=== PATIENT | male | born 1970 | race Caucasian/White ===

== ENCOUNTER 2022-01-10 07:38 | Outpatient (CLI) | payer MEDICARE, MEDICAID, SELFPAY ==
--- NOTE | 2022-01-10 07:45 | RAD_ITS ---
STUDY: X-RAY - ESOPHAGUS (BARIUM SWALLOW) WITH FLUOROSCOPY REASON FOR EXAM: Male, 51 years old. DYSPHAGIA TECHNIQUE: 13 view(s) of the esophagus were obtained following swallowing of barium. FLUOROSCOPY TIME (if supplied): (30 seconds) minutes/seconds COMPARISON: None. FINDINGS: There is no demonstrated esophageal foreign body. There is no demonstrated stricture or mucosal abnormality. Normal gastroesophageal junction, without a demonstrated hiatal hernia. The patient ingested a 12 mm tablet of barium. The tablet is trapped at the gastroesophageal junction. Normal visualized aortic arch and descending thoracic aorta. Normal visualized pulmonary parenchyma. Normal visualized osseous structures of the thorax. RAD/Esophagus Dual Contrast IMPRESSION: Normal plain film x-ray examination (barium swallow) of the esophagus. The 12 mm tablet of barium is trapped at the gastroesophageal junction. Electronically Signed: Mele Winkler MD at 13:15 EST ,
== END 2022-01-10 23:59 | disposition home or self-care (01) ==
PROVIDERS: Referring Provider Otolaryngology; Visit Provider Otolaryngology
DX: R13.10 Dysphagia, unspecified (principal)
CPT/HCPCS: 74221

== ENCOUNTER → 2022-03-16 | Day surgery (SDC) | payer MEDICARE, MEDICAID, SELFPAY ==
[2022-03-16 11:18] VITALS: BP 136/93; PULSE 90; RESP 18; TEMP 36.5; O2SAT 98
== END | disposition home or self-care (01) ==
LOC: EN 10:56
PROVIDERS: Visit Provider Internal Medicine Gastroenterology
PROC: F00ZJWZ Instrumental Swallowing and Oral Function Assessment using Swallowing Equipment (ICD-10-PCS; CPT 43235; principal; 2022-03-16 11:10)
DX: Z00.00 Encounter for general adult medical examination without abnormal findings (principal)

== ENCOUNTER 2022-06-01 07:57 | Day surgery (SDC) | payer MEDICARE, MEDICAID, SELFPAY ==
[2022-06-01] VITALS (7 sets, daily range): BP systolic 109–122; BP diastolic 81–92; PULSE 77–98; RESP 16–24; TEMP 36.2–36.6; O2SAT 94–98; BMI 32.8
--- NOTE | 2022-06-01 | COLBX_PTH ---
PATIENT: UDAY VILLEGAS LOC: EN U#:[id number] AGE/SX: 51/M ROOM: RE06/01/[address]: Dr. Levon Leonard DO : 1970 BED: DIS: 06/01/2022 SPEC #: [id number] RECD: 06/01/22 10:44 STATUS: CAYLA DINO #: [id number] IAR: 06/01/22 00:[address]: Levon Leonard DEPT: SURGICAL PATHOLOGY RECD BY: Homero Figueroa ENTERED: 06/01/22 10:44 SP TYPE: COLON BX OTHR DR: Dr. Kimber Agustin DO Tissues: A - Duodenum, NOS B - Esophageal mucous membrane Procedures: Surgery Specimen Level IV HEADER OPERATION: Colonoscopy, [place] [place] DIAGNOSIS: Food sticks on swallowing, GERD TISSUE SUBMITTED: A ? Duodenum biopsy, B ? Distal esophagus biopsy MICROSCOPIC DIAGNOSIS A. Duodenum, biopsy: No pathologic change. B. Distal esophagus, biopsy: Gastroesophageal junctional mucosa with chronic inflammation. Focal changes of reflux. No evidence of goblet cell metaplasia. See comment. AM:aguilar 06/02/2022 COMMENT B. Alcian blue/PAS stain with matched control supports the above diagnosis. MICROSCOPIC DESCRIPTION Slides are reviewed. GROSS DESCRIPTION A - Received in fixative is one container labeled with the patient's name and designated duodenum biopsy. The specimen consists of two irregular fragments of light carey soft tissue that in aggregate measure 0.5 x 0.3 x 0.1 cm. The specimen is totally submitted in one cassette. B - Received in fixative is one container labeled with the patient's name and designated distal esophagus biopsy. The specimen consists of two irregular fragments of light carey soft tissue that in aggregate measure 0.6 x 0.5 x 0.1 cm. The specimen is totally submitted in one cassette. / AM:aguilar 06/01/2022 TC:3 CPT: 98881 x2, 85851
[2022-06-01] MEDS: Lactated Ringers 1,000 ML 15 ML IV (08:29)
--- NOTE | 2022-06-01 08:33 | HP.PCM_ITS ---
History and Physical Date of Admission: 06/01/22 UDAY VILLEGAS, is a 51 M who presents to the office today referred by ENT for food sticking in throat after swallowing. Started 5+ yrs ago, getting worse.? He describes it as the feeling that food goes up rather than down after he swallows. Doesn't occur every day. Smaller foods such as rice, corn, hamburger pieces are problematic. Larger pieces of food go down better. Whe he has the sensation he can snort and clear it. No CP or feeling of obstruction in the esophagus. He does have heartburn; pantoprazole 40 mg QAM helps. His compounder Dr Jenna Leon started him on PPI about 3 yrs ago. Every morning he has to blow nose and cough up mucus for half hour. Some mornings, about once a month, he also vomits bile or clear fluid. No hematemesis. He had thorough ENT evaluation. Barium swallow showed normal esophagus but barium pill got stuck at GE junction. No prior EGD or colonoscopy. Had daily BM, occas will have a watery diarrhea but no pattern he can discern. No melena or hematochezia. His symptoms are complicated by chronic lung condition, most like pulmonary fibrosis but not specifically named yet. ROS Const Constitutional: No fatigue ENT ENT: Positive for difficulty swallowing Resp Respiratory: Positive for shortness of breath Cardio Cardiology: Positive for chest pain at rest, shortness of breath and dyspnea on exertion Gastro GI: Positive for heartburn, difficulty swallowing and pain with swallowing; No abdominal pain, belching, bloating, change in bowel habits, change in stool character, coffee ground emesis, constipation, cramping, diarrhea, feeling full early, excessive flatus, incontinent of stools, Vomiting blood/hematemesis, Blood in stool, loose stools, Black,tarry stools, nausea/dyspepsia, vomiting or other Musc Musculoskeletal: Positive for joint pain, back pain, stiffness, Arthritis and leg pain at night Skin Skin: No yellowing of the eye or itchy eyes Psych Psychiatric: No anxiety and No depression Endo Endocrine: No fatigue Aller/Imm Allergy/Immunologic: No itchy eyes Owen/Lymp Hematologic/Lymphatic: No easy bleeding or easy bruising Exam Const General: cooperative, no acute distress, well developed and well groomed Eyes Conjunctivae: conjunctivae normal Sclera: sclerae normal Resp Effort & Inspection: able to speak in complete sentences and labored (slightly) GI Inspection: obesity, scar (midline and from laparoscopy) and visible herniation (supraumbilical ) Palpation: soft, no hepatosplenomegaly and tender Extrem General: no edema Quality Reporting Tobacco Screening ([facility] 138) Smoking Status: Never smoker Assessment and Plan Assessment and Plan (1) Food sticks on swallowing: ?Status:?Acute ? ? ? Orders:?Referrals: ? Speech Therapy ?Plan - Mariah Mckay LIVESTOCK DEALER, LIVESTOCK DEALER-C: 51 yr old male with sensation of food traveling up rather than down when he swallows. Barium swallow shows pill stuck at GE junction. I'm referring him to speech therapy so they can evaluate his swallowing and perhaps shed some light on his complaint. We will get esophageal manometry. He is scheduled for EGD and screening colonoscopy. (2) Heartburn: ?Status:?Acute ?Plan - Mariah Mckay LIVESTOCK DEALER, LIVESTOCK DEALER-C: Continue pantoprazole. We will evaluate for Jefferson's on EGD. I have re-examined the patient. There are no clinical changes since date of exam.
--- NOTE | 2022-06-01 09:46 | OP.CCLET_ITS ---
08/16/2022 Leland Gao Md Re : Upper GI endoscopy procedure for Jennifer Mascorro Dear Dr. Gao This procedure was performed on May. My impressions and recommendations are as follows: Impressions : - Z-line irregular, 40 cm from the incisors. Biopsied. - Moderate Schatzki ring. Dilated. - Enlarged gastric folds. - Gastric antral vascular ectasia. - Duodenal erosions without bleeding. Biopsied. Recommendations : - Written discharge instructions were provided to the patient. - The signs and symptoms of potential delayed complications were discussed with the patient. - Patient has a contact number available for emergencies. - Return to normal activities tomorrow. - Resume previous diet. - Continue present medications. - Await pathology results. My findings are described in the full procedure note, which is enclosed. If I can be of further assistance, please feel free to contact me at . Sincerely, Levon Leonard, 06/01/2022 9:45:46 AM This report has been signed electronically.
--- NOTE | 2022-06-01 09:46 | OP.EGD_ITS ---
Patient Name: Jennifer Mascorro Procedure Date: 06/01/2022 9:11 AM Date of : 1970 Age: 51 Procedure: Upper GI endoscopy Indications: Dysphagia Providers: Levon Leonard DO Referring MD: Leland Gao Md Medicines: Monitored Anesthesia Care Patient Profile: This is a 51 year old male. Refer to note in patient chart for documentation of history and physical. Patient has symptoms of chronic dysphagia and dysphagia with solids. Complications: No immediate complications. Procedure: Pre-Anesthesia Assessment: - Prior to the procedure, a History and Physical was performed, and patient medications and allergies were reviewed. The risks and benefits of the procedure and the sedation options and risks were discussed with the patient. All questions were answered and informed consent was obtained. Patient identification and proposed procedure were verified by the physician in the pre-procedure area. Mental Status Examination: alert and oriented. Airway Examination: normal oropharyngeal airway and neck mobility. Respiratory Examination: clear to auscultation. CV Examination: normal. Prophylactic Antibiotics: The patient does not require prophylactic antibiotics. Prior Anticoagulants: The patient has taken no previous anticoagulant or antiplatelet agents. After reviewing the risks and benefits, the patient was deemed in satisfactory condition to undergo the procedure. The anesthesia plan was to use moderate sedation / analgesia (conscious sedation). Immediately prior to administration of medications, the patient was re-assessed for adequacy to receive sedatives. The heart rate, respiratory rate, oxygen saturations, blood pressure, adequacy of pulmonary ventilation, and response to care were monitored throughout the procedure. The physical status of the patient was re-assessed after the procedure. After obtaining informed consent, the endoscope was passed under direct vision. Throughout the procedure, the patient's blood pressure, pulse, and oxygen saturations were monitored continuously. The Colonoscope was introduced through the mouth, and advanced to the second part of duodenum. The upper GI endoscopy was accomplished without difficulty. The patient tolerated the procedure well. Scope In: 9:22:56 AM Scope Out: 9:29:49 AM Total Procedure Duration Time 0 hours 6 minutes 53 seconds Findings: The Z-line was irregular and was found 40 cm from the incisors. Biopsies were taken with a cold forceps for histology. Verification of patient identification for the specimen was done. Estimated blood loss was minimal. A moderate Schatzki ring was found in the lower third of the esophagus. A guidewire was placed and the scope was withdrawn. Dilation was performed with a Savary dilator with no resistance at 60 Fr. The dilation site was examined and showed moderate improvement in luminal narrowing. Estimated blood loss was minimal. Diffuse prominent gastric folds were found in the gastric body. Mild gastric antral vascular ectasia was present in the gastric antrum. A few diffuse erosions without bleeding were found in the first portion of the duodenum. Biopsies were taken with a cold forceps for histology. Verification of patient identification for the specimen was done. Estimated blood loss was minimal. Impression: - Z-line irregular, 40 cm from the incisors. Biopsied. - Moderate Schatzki ring. Dilated. - Enlarged gastric folds. - Gastric antral vascular ectasia. - Duodenal erosions without bleeding. Biopsied. Recommendation: - Written discharge instructions were provided to the patient. - The signs and symptoms of potential delayed complications were discussed with the patient. - Patient has a contact number available for emergencies. - Return to normal activities tomorrow. - Resume previous diet. - Continue present medications. - Await pathology results. Procedure Code(s): --- Professional --- 11077, Esophagogastroduodenoscopy, flexible, transoral; with insertion of guide wire followed by passage of dilator(s) through esophagus over guide wire 61064, 59,51, Esophagogastroduodenoscopy, flexible, transoral; with biopsy, single or multiple CPT copyright 2017 [employer]. All rights reserved. The codes documented in this report are preliminary and upon manager process improvement review may be revised to meet current compliance requirements. Levon Leonard DO 06/01/2022 9:45:46 AM This report has been signed electronically. Number of Addenda: 1 Note Initiated On: 06/01/2022 9:11 AM Addendum Number: 1 Addendum Date: 08/16/2022 6:13:50 AM MAC was used as sedation for this procedure. Levon Leonard DO 08/16/2022 6:13:54 AM This report has been signed electronically.
--- NOTE | 2022-06-01 09:48 | OP.COLON_ITS ---
Patient Name: Jennifer Mascorro Procedure Date: 06/01/2022 9:30 AM Date of : 1970 Age: 51 Procedure: Colonoscopy Indications: Screening for colorectal malignant neoplasm Providers: Levon Leonard DO Referring MD: Leland Gao Md Medicines: Monitored Anesthesia Care Patient Profile: This is a 51 year old male. Refer to note in patient chart for documentation of history and physical. Patient has symptoms of chronic dysphagia and dysphagia with solids. Last Colonoscopy: none. The patient's first colonoscopy is today. Complications: No immediate complications. Procedure: Pre-Anesthesia Assessment: - Prior to the procedure, a History and Physical was performed, and patient medications and allergies were reviewed. The risks and benefits of the procedure and the sedation options and risks were discussed with the patient. All questions were answered and informed consent was obtained. Patient identification and proposed procedure were verified by the physician in the pre-procedure area. Mental Status Examination: alert and oriented. Airway Examination: normal oropharyngeal airway and neck mobility. Respiratory Examination: clear to auscultation. CV Examination: normal. Prophylactic Antibiotics: The patient does not require prophylactic antibiotics. Prior Anticoagulants: The patient has taken no previous anticoagulant or antiplatelet agents. After reviewing the risks and benefits, the patient was deemed in satisfactory condition to undergo the procedure. The anesthesia plan was to use moderate sedation / analgesia (conscious sedation). Immediately prior to administration of medications, the patient was re-assessed for adequacy to receive sedatives. The heart rate, respiratory rate, oxygen saturations, blood pressure, adequacy of pulmonary ventilation, and response to care were monitored throughout the procedure. The physical status of the patient was re-assessed after the procedure. After I obtained informed consent, the scope was passed under direct vision. Throughout the procedure, the patient's blood pressure, pulse, and oxygen saturations were monitored continuously. The Colonoscope was introduced through the anus and advanced to the cecum, identified by appendiceal orifice and ileocecal valve. The colonoscopy was performed without difficulty. The patient tolerated the procedure well. The quality of the bowel preparation was inadequate. Scope In: 9:31:45 AM Scope Withdrawal Time 0 hours 4 minutes 54 seconds Scope Out: 9:39:31 AM Total Procedure Duration Time 0 hours 7 minutes 46 seconds Findings: The perianal and digital rectal examinations were normal. A large amount of stool was found in the entire colon, precluding visualization. Lavage of the area was performed using 200 - 500 mL of sterile water, resulting in incomplete clearance with continued poor visualization. Impression: - Preparation of the colon was inadequate. - Stool in the entire examined colon. - No specimens collected. Recommendation: - Discharge patient to home. - Resume previous diet. - Continue present medications. - Await pathology results. - Repeat colonoscopy in 1 year because the bowel preparation was poor. Procedure Code(s): --- Professional --- G0121, Colorectal cancer screening; colonoscopy on individual not meeting criteria for high risk CPT copyright 2017 [employer]. All rights reserved. The codes documented in this report are preliminary and upon notching machine operator review may be revised to meet current compliance requirements. Levon Leonard DO 06/01/2022 9:48:18 AM This report has been signed electronically. Number of Addenda: 1 Note Initiated On: 06/01/2022 9:30 AM Addendum Number: 1 Addendum Date: 08/16/2022 6:14:02 AM MAC was used as sedation for this procedure. Levon Leonard DO 08/16/2022 6:14:05 AM This report has been signed electronically.
--- NOTE | 2022-06-01 09:49 | OP.CCLET_ITS ---
08/16/2022 Leland Gao Md Re : Colonoscopy procedure for Jennifer Mascorro Dear Dr. Gao This procedure was performed on May. My impressions and recommendations are as follows: Impressions : - Preparation of the colon was inadequate. - Stool in the entire examined colon. - No specimens collected. Recommendations : - Discharge patient to home. - Resume previous diet. - Continue present medications. - Await pathology results. - Repeat colonoscopy in 1 year because the bowel preparation was poor. My findings are described in the full procedure note, which is enclosed. If I can be of further assistance, please feel free to contact me at . Sincerely, Levon Leonard, 06/01/2022 9:48:18 AM This report has been signed electronically.
== END 2022-06-01 10:48 | disposition home or self-care (01) ==
LOC: EN 08:00 → AC 08:03
PROVIDERS: PCP Family Medicine; Referring Provider Family Medicine; Visit Provider Internal Medicine Gastroenterology
PROC: 0DJD8ZZ Inspection of Lower Intestinal Tract, Via Natural or Artificial Opening Endoscopic (ICD-10-PCS; CPT 45378; principal; 2022-06-01 08:55)
DX: Z12.11 Encounter for screening for malignant neoplasm of colon (principal); R13.10 Dysphagia, unspecified; R12 Heartburn; K31.819 Angiodysplasia of stomach and duodenum without bleeding
CPT/HCPCS: 43239; 43248; G0121; 88305; J7120; C1769; J2405

== ENCOUNTER → 2022-06-19 | Outpatient (CLI) | payer MEDICARE, MEDICAID, SELFPAY ==
[2022-06-19 10:31] LABS: Erythrocyte Sedimentation Rate 11 mm/hr (0-20)
[2022-06-19 10:33] LABS: Absolute Lymphocyte Count 2.89 X10^3/uL (0.83-4.51); Absolute Neutrophil Count 12.4 X10^3/uL (2.0-7.7); Basophil# 0.21 X10^3/uL; Basophil% 1.1 % (0-1); Eosinophil# 0.47 X10^3/uL; Eosinophils% 2.6 % (0-5); Hematocrit 50.4 % (40-54); Hemoglobin 16.7 g/dL (13.0-16.5); Lymphocyte # 2.89 X10^3/ul (0.83-4.51); Lymphocyte % 15.8 % (19-41); Mean Corp Hgb Conc 33.1 g/dL (32-36); Mean Corpuscular Hgb 28.4 pg (27.0-32.0); Mean Corpuscular Volume 85.6 fL (80-94); Mean Platelet Vol. 8.4 fl (6.2-12.0); Monocyte# 1.53 X10^3/uL; Monocyte% 8.4 % (0-10); NRBC Flagged by Analyzer 0 % (0-5); Neutrophil # 12.43 X10^3/uL (2.7-7.7); Neutrophil % 67.8 % (47-70); POSITIVE DIFFERENTIAL YES; Platelet Count 380 K/mm3 (150-450); RBC Distribution Width CV 13.9 % (11.6-14.6); RBC Distribution Width SD 43.5 fl (35.1-43.9); Red Blood Count 5.89 M/mm3 (4.6-6.2); White Blood Count 18.3 K/mm3 (4.4-11.0)
[2022-06-19 10:34] LABS: Differential Indicated SCAN CRITERIA MET
[2022-06-19 11:05] LABS: AST(SGOT) 12 U/L (15-37); Alanine Aminotransfer ALT/SGPT 23 U/L (16-61); Albumin, Serum 3.5 g/dL (3.2-5.0); Alkaline Phosphatase 79 U/L (45-117); Anion Gap 7 (5-15); BUN 27 mg/dL (7-18); BUN/Creat Ratio 27.1 RATIO (10-20); CRP < 2.90 mg/L (0.0-3.0); Calcium,Total 9.3 mg/dL (8.5-10.1); Chloride 104 mmol/L (98-107); EST Glomerular Filtration Rate 83 mL/min (>60); Est Glom Filt Rate - Afr Amer 101 mL/min (>60); Globulin 3.6 g/dL (2.2-4.2); Glucose 90 mg/dL (74-106); LDH 161 U/L (87-241); Potassium 4.1 mmol/L (3.5-5.1); Protein, Total 7.1 g/dL (6.4-8.2); Sodium Level 136 mmol/L (136-145)
[2022-06-19 11:21] LABS: Platelet Estimate ADEQUATE (ADEQ); Red Cell Morphology NORM C+C NORMAL (NORM C&C)
[2022-06-20 13:03] LABS: Pathologist Review Reviewed
[2022-06-20 14:09] LABS: Anti-Centromere B Ab <0.2 AI (0.0-0.9); Anti-Chromatin <0.2 AI (0.0-0.9); Anti-Jo <0.2 AI (0.0-0.9); Anti-Scleroderma-70 AB <0.2 AI (0.0-0.9); RNP Ab <0.2 AI (0.0-0.9); SJOGREN'S Anti-SS-A test < 0.2 AI (0.0-0.9); SJOGREN'S Anti-SS-B test < 0.2 AI (0.0-0.9); Smith Ab <0.2 AI (0.0-0.9)
[2022-06-20 17:07] LABS: Anti-Mitochondrial AB <20.0 Units (0.0-20.0); Anti-dsDNA Ab <1 IU/mL (0-9)
[2022-06-24 10:08] LABS: Albumin 3.6 g/dL (2.9-4.4); Alpha-1-Globulins 0.3 g/dL (0.0-0.4); Alpha-2-Globulins 0.8 g/dL (0.4-1.0); Cytoplasmic Ab (C-ANCA) <1:20 titer (Neg:<1:20); Gamma Globulin 0.9 g/dL (0.4-1.8); Immunoglobulin A 256 mg/dL (90-386); Immunoglobulin E 161 IU/mL (6-495); Immunoglobulin G 903 mg/dL (603-1613); Immunoglobulin M 61 mg/dL (20-172); PROEL- TOTAL PROTEIN 6.7 g/dL (6.0-8.5)
[2022-06-24 15:43] LABS: Angiotensin Convert Enzyme < 15 U/L (14-82); Anti-Smooth Muscle ABS 6 Units (0-19); Gastrin, Serum 88 pg/mL (0-115); Perinuclear Ab (P-ANCA) <1:20 titer (Neg:<1:20)
== END | disposition home or self-care (01) ==
LOC: LAB 08:55
PROVIDERS: PCP Family Medicine; Referring Provider Nurse Practitioner Adult Health; Visit Provider Nurse Practitioner Adult Health
DX: K31.819 Angiodysplasia of stomach and duodenum without bleeding (principal); Q40.3 Congenital malformation of stomach, unspecified
CPT/HCPCS: 36415; 80053; 82164; 82784; 82785; 82941; 83516; 83615; 84165; 85025; 85652; 86140; 86225; 86235; 86256; 86334

== ENCOUNTER → 2022-06-20 | Outpatient (CLI) | payer MEDICARE, MEDICAID, SELFPAY ==
[2022-06-24 15:42] LABS: H. PYLORI STOOL AG Negative (Negative)
== END | disposition home or self-care (01) ==
LOC: LABSPEC 08:04
PROVIDERS: PCP Family Medicine; Visit Provider Internal Medicine Gastroenterology
DX: Z00.00 Encounter for general adult medical examination without abnormal findings (principal)

== ENCOUNTER 2022-08-25 10:05 | Day surgery (SDC) | payer MEDICARE, MEDICAID, SELFPAY ==
[2022-08-25 10:23] VITALS: BP 139/103; PULSE 82; RESP 18; TEMP 36.7; O2SAT 96
[2022-08-25] MEDS: Lidocaine Jelly 2% 20 ML Syringe (URO-JET) 1 APPLIC (10:25)
== END 2022-08-25 10:57 | disposition home or self-care (01) ==
PROVIDERS: PCP Family Medicine; Referring Provider Family Medicine; Visit Provider Internal Medicine Gastroenterology
PROC: F00ZJWZ Instrumental Swallowing and Oral Function Assessment using Swallowing Equipment (ICD-10-PCS; CPT 43235; principal; 2022-08-25 10:25)
DX: R13.10 Dysphagia, unspecified (principal)
CPT/HCPCS: 91010

== ENCOUNTER → 2022-08-30 | Outpatient (CLI) | payer MEDICARE, MEDICAID, SELFPAY ==
--- NOTE | 2022-08-30 08:06 | US_ITS ---
STUDY: ABDOMINAL ULTRASOUND - ELASTOGRAPHY REASON FOR VISIT: Male, 52 years old. GAVE TECHNIQUE: Liver stiffness measurements were obtained on a [employer] RS 85 ultrasound machine using a CA 1-7 probe following the SRU guidelines. 3 measurements were obtained using a 2-D-SWE method. The IQR/M was 19% suggesting a quality data set. TECHNICAL QUALITY: Adequate. COMPARISON: Comparison is made with prior study done earlier today. FINDINGS: Liver: Mild hepatomegaly. Median liver stiffness measured 9.1 kPa. US/Elastography Parenchyma/Organ IMPRESSION: Liver stiffness measures 9.1 kPa compatible with F2-F3 (Mild to moderate liver fibrosis) Metavir score. Electronically Signed: Mele Winkler MD at 8:33 EDT ,
--- NOTE | 2022-08-30 08:06 | US_ITS ---
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 TECHNICAL QUALITY: Adequate. COMPARISON: None. FINDINGS: Liver: The liver is enlarged and measures 19 cm. There is normal echogenicity of the liver. The bile ducts are within normal limits. There is hepatic color flow. The direction of portal flow is hepatopetal. There is no demonstrated mass lesion. Gallbladder: Normal distended gallbladder. The gallbladder wall measures 1.5 mm. There is a negative sonographic Martínez''s sign. There is no pericholecystic fluid. There are no gallstones. Common Bile Duct (C.B.D.): The common bile duct measures 2.6 mm. Pancreas: Normal size of the head, body and tail of the pancreas. There is increased echogenicity of the pancreas. There is no demonstrated pancreatic mass or cyst. Right Kidney: Normal size of the right kidney. The right kidney measures 11.9 cm x 6.3 cm x 5.8 cm. Normal renal cortex. The right cortex measures 1.5 cm. There is no demonstrated renal mass or cyst. There is no right hydronephrosis. US/Abdomen Limited IMPRESSION: Mild hepatomegaly. Electronically Signed: Mele Winkler MD at 8:28 EDT ,
== END | disposition home or self-care (01) ==
LOC: US 08:04
PROVIDERS: PCP Family Medicine; Referring Provider Nurse Practitioner Adult Health; Visit Provider Nurse Practitioner Adult Health
DX: K31.819 Angiodysplasia of stomach and duodenum without bleeding (principal); R14.0 Abdominal distension (gaseous)
CPT/HCPCS: 76705; 76981

== ENCOUNTER → 2022-10-31 | Outpatient (CLI) | payer MEDICARE, MEDICAID, SELFPAY ==
--- NOTE | 2022-10-31 07:07 | CT_ITS ---
STUDY: CT Abdomen And Pelvis W/ Contrast Injection 10/31/2022 5:59 PM REASON FOR EXAM: Male, 52 years old. ABDOMINAL PAIN abd distention -- oral and iv TECHNIQUE: Transaxial images were obtained with oral contrast, and with Oral and amp; IV Gastrografin and amp; 100mL Isovue-300 intravenous contrast. Individualized dose optimization techniques were used for this CT. COMPARISON: None. FINDINGS: The visualized lung bases are unremarkable. The visualized portions of the heart are within normal limits. Unremarkable liver. Unremarkable gallbladder and extrahepatic biliary system. Unremarkable spleen. Unremarkable pancreas. Unremarkable bilateral adrenal glands. No acute findings of the right kidney. No acute findings of the left kidney. Unremarkable visualized stomach. Unremarkable small intestine. There are multiple colonic diverticula consistent with diverticulosis. There is non-visualization of the appendix. There are calcifications of the abdominal aorta. This is consistent for atherosclerotic disease. There is no abdominal aortic aneurysm. Unremarkable inferior vena cava. Subcentimeter mesenteric lymph nodes. Unremarkable urinary bladder. There are prostatic calcifications. There is an umbilical hernia containing fat. Unremarkable osseous structures. CT/Abdomen/Pelvis WITH Contrast IMPRESSION: (NOT LISTED IN ORDER OF SIGNIFICANCE) There are no acute findings. Other findings as above. Electronically Signed: Kvng Friedman MD at 18:04 [facility] ,
[2022-10-31 08:21] LABS: Absolute Lymphocyte Count 2.08 X10^3/uL (0.83-4.51); Absolute Neutrophil Count 7.2 X10^3/uL (2.0-7.7); Basophil% 0.9 % (0-1); Eosinophil# 0.32 X10^3/uL; Hemoglobin 18.8 g/dL (13.0-16.5); Lymphocyte # 2.08 X10^3/ul (0.83-4.51); Lymphocyte % 19.3 % (19-41); Mean Corp Hgb Conc 33.4 g/dL (32-36); Mean Corpuscular Hgb 28.7 pg (27.0-32.0); Mean Platelet Vol. 8.5 fl (6.2-12.0); Monocyte# 0.95 X10^3/uL; Monocyte% 8.8 % (0-10); NRBC Flagged by Analyzer 0 % (0-5); Neutrophil # 7.22 X10^3/uL (2.7-7.7); Neutrophil % 67.3 % (47-70); Platelet Count 321 K/mm3 (150-450); RBC Distribution Width CV 13.2 % (11.6-14.6); RBC Distribution Width SD 40.8 fl (35.1-43.9); Red Blood Count 6.55 M/mm3 (4.6-6.2); White Blood Count 10.8 K/mm3 (4.4-11.0)
[2022-10-31 08:54] LABS: AST(SGOT) 9 U/L (15-37); Alanine Aminotransfer ALT/SGPT 21 U/L (16-61); Albumin, Serum 3.9 g/dL (3.2-5.0); Alkaline Phosphatase 118 U/L (45-117); Anion Gap 4 (5-15); BUN 14 mg/dL (7-18); BUN/Creat Ratio 13.3 RATIO (10-20); Bilirubin, Direct 0.14 mg/dL (0.00-0.30); Calcium,Total 9.3 mg/dL (8.5-10.1); Chloride 102 mmol/L (98-107); Creatinine, Serum 1.05 mg/dL (0.70-1.30); EST Glomerular Filtration Rate 78 mL/min (>60); Est Glom Filt Rate - Afr Amer 95 mL/min (>60); Ferritin 75 ng/mL (26-388); Glucose 102 mg/dL (74-106); Potassium 4.4 mmol/L (3.5-5.1); Protein, Total 7.9 g/dL (6.4-8.2); Sodium Level 135 mmol/L (136-145)
[2022-10-31 09:07] LABS: Hematocrit 56.3 % (40-54)
[2022-10-31 10:51] LABS: International Normalized Ratio 1.1; Prothrombin Time (Protime)PT. 13.7 SECONDS (11.7-14.9)
[2022-11-07 20:07] LABS: Ceruloplasmin 26.4 mg/dL (16.0-31.0)
[2022-11-07 20:18] LABS: Copper, Serum or Plasma 114 ug/dL (69-132); Haptoglobin 193 mg/dL (29-370)
== END | disposition home or self-care (01) ==
PROVIDERS: PCP Family Medicine; Referring Provider Nurse Practitioner Adult Health; Visit Provider Nurse Practitioner Adult Health
DX: R14.0 Abdominal distension (gaseous) (principal); K76.0 Fatty (change of) liver, not elsewhere classified; K31.819 Angiodysplasia of stomach and duodenum without bleeding
CPT/HCPCS: 36415; 74177; 80053; 82140; 82248; 82390; 82525; 82728; 83010; 85025; 85610; Q9967